=== PATIENT | female | born 1965 | race Caucasian/White ===

== ENCOUNTER → 2018-11-21 | Outpatient (CLI) | payer BC ==
[~2018-11-21] MED LIST: ALDACTONE25 MG PO; ASPIRIN EC81 M1 PO; ATORVASTATIN CA40 MG PO; AUGMENTIN 500-1 EACH PO; BRILINTA90 MG PO; BUPROPION XL150 MG PO; CELEXA40 MG PO; CRESTOR20 MG PO; ESTRACE2 MG; FENOFIBRATE134 MG PO; FIORICET 50-301 EACH PO; FISH OIL 1,0001 EAC5 PO; FISH OIL 1,001000 MG PO; GLUCOPHAGE1000 MG PO; GLUCOTROL5 MG PO; HUMALOG100 UNIT/2 SQ; HYDROCODON-ACE1 EAC2 PO; IRON325 PO; LEVEMIR SUBQ; LIPITOR80 MG; LISINOPRIL10 MG PO; LISINOPRIL20 MG PO; LOPRESSOR25 PO; LYRICA100 MG PO; MACROBID 100 M100 M1 PO; NEURONTIN800 MG PO; NIASPAN750 MG PO; NITROGLYCERIN0.4 MG SL; NORCO 5-325 TA1 EAC1 PO; PERCOCET 7.5-31 EACH PO; PRENATAL; PRENATAL MULTI1 EAC2 PO; SINUS NASAL SPR30 M1 NS; TEGRETOL200 MG PO; TOPROL XL25 MG PO; VICODIN ES 7.51 EACH PO; ZETIA10 MG PO; [UNRECOGNIZED DRUG - OTHER] PO
== END ==
LOC: M.WC 09:13
DX: E11.621 Type 2 diabetes mellitus with foot ulcer (principal); L97.522 Non-pressure chronic ulcer of other part of left foot with fat layer exposed; E11.42 Type 2 diabetes mellitus with diabetic polyneuropathy; E78.5 Hyperlipidemia, unspecified; I10 Essential (primary) hypertension; I25.10 Atherosclerotic heart disease of native coronary artery without angina pectoris; J44.9 Chronic obstructive pulmonary disease, unspecified; K21.9 Gastro-esophageal reflux disease without esophagitis; F17.200 Nicotine dependence, unspecified, uncomplicated; F32.9 Major depressive disorder, single episode, unspecified; Z90.710 Acquired absence of both cervix and uterus; Z96.653 Presence of artificial knee joint, bilateral

== ENCOUNTER → 2018-12-01 | Outpatient (CLI) | payer BC | LOC: M.WC 04:48 | DX: E11.621 Type 2 diabetes mellitus with foot ulcer (principal); L97.521 Non-pressure chronic ulcer of other part of left foot limited to breakdown of skin; E11.42 Type 2 diabetes mellitus with diabetic polyneuropathy; E78.5 Hyperlipidemia, unspecified; E66.9 Obesity, unspecified; I10 Essential (primary) hypertension; I25.10 Atherosclerotic heart disease of native coronary artery without angina pectoris; J44.9 Chronic obstructive pulmonary disease, unspecified; K21.9 Gastro-esophageal reflux disease without esophagitis; F32.9 Major depressive disorder, single episode, unspecified; F17.200 Nicotine dependence, unspecified, uncomplicated; Z68.32 Body mass index [BMI] 32.0-32.9, adult; Z96.653 Presence of artificial knee joint, bilateral ==

== ENCOUNTER → 2018-12-08 | Outpatient (CLI) | payer BC | LOC: M.WC 04:44 | DX: E11.621 Type 2 diabetes mellitus with foot ulcer (principal); L97.521 Non-pressure chronic ulcer of other part of left foot limited to breakdown of skin; E11.42 Type 2 diabetes mellitus with diabetic polyneuropathy; E78.5 Hyperlipidemia, unspecified; I10 Essential (primary) hypertension; I25.10 Atherosclerotic heart disease of native coronary artery without angina pectoris; J44.9 Chronic obstructive pulmonary disease, unspecified; K21.9 Gastro-esophageal reflux disease without esophagitis; E66.9 Obesity, unspecified; F32.9 Major depressive disorder, single episode, unspecified; F17.290 Nicotine dependence, other tobacco product, uncomplicated; Z68.32 Body mass index [BMI] 32.0-32.9, adult; Z96.653 Presence of artificial knee joint, bilateral ==

== ENCOUNTER → 2018-12-23 | Outpatient (CLI) | payer BC | LOC: M.WC 12-16 00:22 | DX: E11.621 Type 2 diabetes mellitus with foot ulcer (principal); L97.521 Non-pressure chronic ulcer of other part of left foot limited to breakdown of skin; E11.42 Type 2 diabetes mellitus with diabetic polyneuropathy; E66.9 Obesity, unspecified; E78.5 Hyperlipidemia, unspecified; I10 Essential (primary) hypertension; I25.10 Atherosclerotic heart disease of native coronary artery without angina pectoris; J44.9 Chronic obstructive pulmonary disease, unspecified; K21.9 Gastro-esophageal reflux disease without esophagitis; F32.9 Major depressive disorder, single episode, unspecified; F17.200 Nicotine dependence, unspecified, uncomplicated; Z96.653 Presence of artificial knee joint, bilateral ==

== ENCOUNTER → 2018-12-28 | Outpatient (CLI) | payer BC | LOC: M.ULTRA 12:54 | DX: I70.202 Unspecified atherosclerosis of native arteries of extremities, left leg (principal); Z91.013 Allergy to seafood; Z91.012 Allergy to eggs; Z88.8 Allergy status to other drugs, medicaments and biological substances; Z79.899 Other long term (current) drug therapy ==

== ENCOUNTER → 2018-12-30 | Outpatient (CLI) | payer BC | LOC: M.WC 05:42 | DX: E11.621 Type 2 diabetes mellitus with foot ulcer (principal); L97.521 Non-pressure chronic ulcer of other part of left foot limited to breakdown of skin; E11.42 Type 2 diabetes mellitus with diabetic polyneuropathy; E78.5 Hyperlipidemia, unspecified; I10 Essential (primary) hypertension; I87.2 Venous insufficiency (chronic) (peripheral); I25.10 Atherosclerotic heart disease of native coronary artery without angina pectoris; J44.9 Chronic obstructive pulmonary disease, unspecified; F17.290 Nicotine dependence, other tobacco product, uncomplicated; F32.9 Major depressive disorder, single episode, unspecified; Z96.653 Presence of artificial knee joint, bilateral ==

== ENCOUNTER → 2019-01-06 | Outpatient (CLI) | payer BC | LOC: M.WC 04:39 | DX: E11.621 Type 2 diabetes mellitus with foot ulcer (principal); L97.521 Non-pressure chronic ulcer of other part of left foot limited to breakdown of skin; E11.42 Type 2 diabetes mellitus with diabetic polyneuropathy; E78.5 Hyperlipidemia, unspecified; I10 Essential (primary) hypertension; I25.10 Atherosclerotic heart disease of native coronary artery without angina pectoris; J44.9 Chronic obstructive pulmonary disease, unspecified; K21.9 Gastro-esophageal reflux disease without esophagitis; F32.9 Major depressive disorder, single episode, unspecified; F17.290 Nicotine dependence, other tobacco product, uncomplicated; Z96.653 Presence of artificial knee joint, bilateral ==

== ENCOUNTER 2020-04-28 14:31 | Observation (INO) | payer BC ==
[~2020-04-28] VITALS: Ht 167.6 cm; Wt 104.3 kg
[~2020-04-28 14:31] MED LIST changes: -LEVEMIR SUBQ; +LEVEMIR100 UNIT/1 SUBQ
[2020-04-28 14:37] VITALS: BP 124/63
[2020-04-28 14:57] LABS: ABSOLUTE BASOPHILS 0.1 thou/uL (0.0-0.2); ABSOLUTE EOSINOPHILS 0.2 thou/uL (0.0-0.7); ABSOLUTE LYMPHOCYTES 3.2 thou/uL (0.8-5.3); ABSOLUTE MONOCYTES 0.6 thou/uL (0.0-1.2); ABSOLUTE NEUTROPHILS 6.1 thou/uL (1.6-8.1); BASOPHILS 1.3 %; HEMATOCRIT 41.3 % (37.0-47.0); HEMOGLOBIN 13.8 gm/dL (12.0-15.0); LYMPHOCYTES 30.9 %; MCH 28.9 pg (26.0-34.0); MCHC 33.5 g/dL (28.0-37.0); MCV 86.3 fL (80.0-100.0); MONOCYTES 6.2 %; MPV 10.5 fl. (7.2-11.1); NUCLEATED RBCS 0 /100WBC; PLATELET COUNT* 231 thou/uL (150-400); POLYS 59.6 %; RBC 4.79 mil/uL (4.20-5.00); RDW-CV 15.1 % (10.5-14.5); WBC 10.3 thou/uL (4.0-11.0)
[2020-04-28 15:08] LABS: APTT 29.6 Seconds (25.0-31.3); PROTIME 10.7 Seconds (9.20-11.50)
[2020-04-28 15:13] LABS: CALCIUM 8.3 mg/dL (8.5-10.1); CREATININE 1.9 mg/dL (0.6-1.3); POTASSIUM 3.6 mmol/L (3.5-5.1)
[2020-04-28 15:23] LABS: ALBUMIN 3.5 g/dL (3.4-5.0); MAGNESIUM 1.3 mg/dL (1.8-2.4); TOTAL BILIRUBIN 0.2 mg/dL (<0.1-1.0); TOTAL PROTEIN 7.6 g/dL (6.4-8.2)
[2020-04-28 19:35] VITALS: BP 123/61
[2020-04-28 20:00] VITALS: BP 128/70
[2020-04-29] VITALS: BP 147/57
[2020-04-29 04:00] VITALS: BP 111/75
[2020-04-29 04:49] LABS: HEMATOCRIT 38.3 % (37.0-47.0); HEMOGLOBIN 12.8 gm/dL (12.0-15.0); MCH 28.9 pg (26.0-34.0); MCHC 33.5 g/dL (28.0-37.0); MCV 86.4 fL (80.0-100.0); MPV 10.1 fl. (7.2-11.1); RBC 4.43 mil/uL (4.20-5.00); WBC 9.5 thou/uL (4.0-11.0)
[2020-04-29 05:00] LABS: CALCIUM 8.3 mg/dL (8.5-10.1); CREATININE 1.2 mg/dL (0.6-1.3); MAGNESIUM 1.3 mg/dL (1.8-2.4); POTASSIUM 4.1 mmol/L (3.5-5.1)
--- NOTE | 2020-04-29 05:42 | NUR ---
PATIENT ARRIVED ON UNIT AT APPROX 1930. 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 VITAL SIGNS REMAIN STABLE. REQUESTED PAIN MEDICATION FOR CONTINUED SHOULDER AND BACK PAIN. HOME NORCO RESUMED PER ORDER. IV PATENT. SINUS RHYTHM ON THE MONITOR. HOURLY ROUNDING COMPLETED CHARTED.
[2020-04-29 07:30] VITALS: BP 124/62
--- NOTE | 2020-04-29 09:55 | EKG ---
[place] [address] ELECTROCARDIOGRAM REPORT Name: THEODORE MANJARREZ Room: [address] M.R.#: [id number] Admission: 04/28/20 Attend Phys: Laurie Jorgensen, Discharge: Date of : 67 Date of Service: 04/28/20 1435 Report #: [id number] THIS REPORT FOR: //name// [facility] ED Test Date: 2020-04-28 Test Time: 14:35:31 Pat Name: THEODORE MANJARREZ Department: Room: [facility] Gender: F Architectural Practice Manager: NEDRA : 1965 Requested By: Raymundo Knott Order Number: [id number] MD: Ravin Posada Measurements Intervals [place] Rate: 87 P: 70 [place]: 169 QRS: 7 QRSD: 91 T: 100 QT: 370 QTc: 445 Interpretive Statements Sinus rhythm Borderline T wave abnormalities Compared to ECG 02/24/2016 11:01:34 Prolonged QT interval no longer present T-wave abnormality still present Electronically Signed On 04-29-2020 9:55:21 CDT by Ravin Posada [email or web address] <ELECTRONICALLY SIGNED> By: Ravin Posada MD, [facility] 04/29/20 0955 1435 1435 Ravin Posada MD, [facility] /EPI
[2020-04-29 12:37] VITALS: BP 123/64
--- NOTE | 2020-04-29 14:07 | NUR ---
CM SPOKE TO THE PT TO DISCUSS HER HOME SITUATION, DISCHARGE PLANNING, AND TO INFORM OF THE ROLE OF CM. PT A&O, INDEPENDENT, ACTIVE, AND WORKS. PT RESIDES AT HOME ALONE AND INFORMS THAT HER SPOUSE ' 1.5 YEARS AGO'. CM INFORMED ADMITTING OF THE NEED TO REMOVE THE PT'S SPOUSE FROM THE FACESHEET HE WAS LISTED THE PT'S EMERGENCY CONTACT. PT REQUEST THAT HER SON BE LISTED. PT PLANS TO RETURN HOME AT D/C AND DOES NOT ANTICIPATE ANY D/C PLANNING NEEDS. CM WILL REMAIN AVAILABLE TO ASSIST AND FOLLOW NEEDED.
--- NOTE | 2020-04-29 15:44 | EXE ---
[place] [address] STRESS ECHOCARDIOGRAM Name: THEODORE MANJARREZ Room: [address] MIbanRIban#: [id number] Admission: 04/28/20 Attend Phys: Laurie Jorgensen, Discharge: Date of : 67 Date of Service: 04/29/20 1544 Report #: [id number] THIS REPORT FOR: cc: Ildefonso Mulligan Russell J. DO Blick,Ravin Pichardo MD [facility] ~ APPROVED REPORT Study performed: 04/29/2020 14:09:40 Exam: Dobutamine Stress Echo Indication: Dizziness, Chest pain , CAD s/p PCI, Hyperlipidemia, Hypertension Patient Location: In-Patient Stress Nurse: Leatha Jain RN Supervising Physician: Ravin Posada MD Ht: 5 ft 5 in HR: 74 bpm BP: 137/73 mmHg Medical History Cardiac Risk Factors: FHX of CAD, Tobacco History (Current/Recent), Hyperlipidemia, HTN, Diabetes (insulin) Procedure The patient underwent a Pharmacological Stress Test using Dobutamine. Blood pressure, heart rate, and EKG were monitored. An Echocardiogram was performed by chemistry laboratory technician in four stages in quad fashion. At peak stress, four selected images were obtained and placed side by side with resting images for comparison. Echo Enhancing Agent Indication: Endocardial border delineation Agent(s) / Amount(s) Used: Optison cc Stress Test Details Stress Test: Pharmacological Stress Test using Dobutamine. Reason for pharmacologic stress test: physical limitation. HR Resting HR: 74 bpm Max Heart Rate (APMHR): 167 bpm Max HR Achieved: 148 bpm Target HR (85% APMHR): 141 bpm % of APMHR: 88 Recovery HR: 88 [place] [address] STRESS ECHOCARDIOGRAM Name: THEODORE MANJARREZ Room: [address] M.R.#: [id number] Admission: 04/28/20 Attend Phys: Laurie Jorgensen, Discharge: Date of : 67 Date of Service: 04/29/20 1544 Report #: [id number] HR response to stress: Normal HR response to stress BP Resting BP: 137/73 mmHg Max BP: 254/69 mmHg Recovery BP: 140/65 mmHg BP response to stress: Abnormal hypertensive response to stress. ECG Resting ECG: Sinus Rhythm Stress ECG: Sinus Rhythm, nonspecific ST-T abnormalities ST Change: Upsloping ST depression Maximum ST Deviation: 0.5 mm Arrhythmia: VPC's Recovery ECG: Sinus Rhythm Recovery ST Change: Normal Recovery ST Deviation: 0 mm Recovery Arrhythmia: None Clinical Reason for Termination: Completed protocol Exercise duration: 13 min 45 sec Exercise capacity: 1.00 METs Pre-Stress Echo The resting Echocardiogram showed normal left ventricular contractility with an estimated Ejection Fraction of about 55-60%. Post-Stress Echo The stress Echocardiogram showed normal left ventricular contractility with an estimated Ejection Fraction of about 65-70%. Compared to rest, there were no stress-induced wall motion abnormalities. Conclusion Clinical Response: Non-ischemic Stress ECG Response: Equivocal Stress Echo Images: Non-ischemic low risk stress dobutamine echo for predicitng future cardiac events Other Information Study Quality: Adequate Technically limited study [place] [address] STRESS ECHOCARDIOGRAM Name: JOSSELINETHEODORE JIMI Room: [address] MRonny#: [id number] Admission: 04/28/20 Attend Phys: Laurie Jorgensen, Discharge: Date of : 67 Date of Service: 04/29/20 154 Report #: [id number] <Conclusion> low risk stress dobutamine echo for predicitng future cardiac events <ELECTRONICALLY SIGNED> By: Ravin Posada MD, FACC 04/29/20 1544 1544 154 Ravin Posada MD, FACC /INF
[2020-04-29 16:38] VITALS: BP 123/64
--- NOTE | 2020-04-30 14:44 | CON ---
[address] [address] CONSULTATION Name: THEODORE MANJARREZ Room: [address] Suri Okeefe#: [id number] Admission: 04/28/20 Attend Phys: Laurie Jorgensen MD Discharge: 04/29/20 Date of : 67 Report #: [id number] THIS REPORT FOR: //name// cc: Ildefonso Mulligan Russell J. DO THIS REPORT FOR: //name// CC: Laurie Mulligan DO DATE OF SERVICE: 04/29/2020 CARDIOLOGY CONSULTATION HISTORY OF PRESENT ILLNESS: The patient is a 54-year-old single white female who I was asked to see in the hospital today after she complained of back pain. The patient apparently presented 4 years ago to [facility] with epigastric pain. She had 2 coronary stents placed. I have seen her in the Cardiology Clinic since that time. She was last seen last year. She stays very active at work. She denied any recent epigastric pain. Recently, she has been having a lot of back pain. She apparently had a recent CT scan of the back that showed spurs. She was at work yesterday when she felt a pain in her back, went into her shoulder. She felt diaphoretic, lightheaded and weak. She also noticed some epigastric discomfort. She drove herself to the Emergency Room and was admitted. She has had no further epigastric pain since that time. She denies exertional chest tightness, palpitations, syncope, peripheral edema, fever or cough. PAST MEDICAL HISTORY: Significant for cholecystectomy, hysterectomy, bilateral knee surgery, hypertension, diabetes, hyperlipidemia. CURRENT MEDICATIONS: Consist of aspirin, Lipitor, Wellbutrin, Tegretol, Celexa, Zetia, fenofibrate, glipizide, insulin, metformin, metoprolol, Lyrica. ALLERGIES: She has no known drug allergies. FAMILY HISTORY: Her brother had heart disease. 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 Smokes less than a pack of cigarettes a day. No alcohol abuse, no illicit drug use. REVIEW OF SYSTEMS: She is overweight, being 5 feet 6, 230 pounds. No history of stroke, snoring at night, asthma, liver disease. She has had kidney stones. No cancer. She saw a psychiatrist in the past. [place] [address] CONSULTATION Name: THEODORE MANJARREZ Room: [address] Maldonado#: [id number] Admission: 04/28/20 Attend Phys: Laurie Jorgensen MD Discharge: 04/29/20 Date of : 67 Report #: [id number] PHYSICAL EXAMINATION: GENERAL: Revealed a middle-aged female who appeared in no distress. VITAL SIGNS: She had a blood pressure of 110/70, pulse is 80, she is afebrile. HEENT: She was anicteric. Conjunctivae pink. Mucous membranes moist. NECK: Veins difficult to assess due to obesity. No carotid bruits. CHEST: Clear to auscultation. CARDIOVASCULAR: Regular rate and rhythm, no murmur. ABDOMEN: Obese. EXTREMITIES: Had no pitting edema. Dorsalis pedis pulse 1+ bilaterally. Straight leg raising produced no significant back pain. NEUROLOGIC: Nonfocal. Her ECG on admission showed a sinus rhythm, nonspecific T-wave changes. Compared to previous ECG in 2016. There was no significant change. Her workup in the Emergency Room yesterday, she had a portable chest x-ray that showed cardiomegaly, otherwise clear lung frances. CT scan of the chest using a PE protocol showed atelectasis, noncalcified nodules. LABORATORY WORK: Sodium 140, potassium 4.1, creatinine 1.2. Troponin 0.06. White blood cell count 9.5, hemoglobin 12.8. IMPRESSION AND RECOMMENDATIONS: 1. Back pain. Recent CT scan of the back. 2. Epigastric discomfort. Previous stent. Recommend dobutamine, Cardiolite. 3. Hypertension. The patient is on a beta-mariya. 4. Diabetes. 5. Obesity. 6. Dyslipidemia. The patient is on a statin drug for high cholesterol and fenofibrate for high triglycerides. 7. Tobacco abuse. <ELECTRONICALLY SIGNED> By: Ravin Posada MD, [facility] 04/30/20 1444 0815 [id number] Posada MD, [facility] /nt
== END 2020-04-29 16:53 | disposition home or self-care (01) ==
LOC: M.ERS 14:31 → M.2W 15:47 → M.TBA-ER 15:47 → M.2W 19:25
PROVIDERS: Emergency Medicine Emergency Medical Services; ADMIT Internal Medicine; ATTEND Internal Medicine
DX: Z03.818 Encounter for observation for suspected exposure to other biological agents ruled out (principal); R07.89 Other chest pain; M54.9 Dorsalgia, unspecified; J96.01 Acute respiratory failure with hypoxia; I25.10 Atherosclerotic heart disease of native coronary artery without angina pectoris; E11.9 Type 2 diabetes mellitus without complications; G57.93 Unspecified mononeuropathy of bilateral lower limbs; N17.9 Acute kidney failure, unspecified; F17.210 Nicotine dependence, cigarettes, uncomplicated; Z79.82 Long term (current) use of aspirin; Z79.899 Other long term (current) drug therapy; Z79.4 Long term (current) use of insulin

== ENCOUNTER 2021-05-24 11:30 | Inpatient (IN) | payer BC ==
[~2021-05-24] VITALS: Ht 167.6 cm; Wt 102.1 kg
[2021-05-24 11:34] VITALS: BP 103/46
[2021-05-24 11:59] LABS: ABSOLUTE BASOPHILS 0.2 thou/uL (0.0-0.2); ABSOLUTE EOSINOPHILS 0.8 thou/uL (0.0-0.7); ABSOLUTE LYMPHOCYTES 2.1 thou/uL (0.8-5.3); ABSOLUTE MONOCYTES 0.6 thou/uL (0.0-1.2); ABSOLUTE NEUTROPHILS 9.1 thou/uL (1.6-8.1); BASOPHILS 1.4 %; HEMATOCRIT 39.7 % (37.0-47.0); HEMOGLOBIN 12.6 gm/dL (12.0-15.0); LYMPHOCYTES 16.8 %; MCH 28.2 pg (26.0-34.0); MCHC 31.8 g/dL (28.0-37.0); MCV 88.7 fL (80.0-100.0); MONOCYTES 4.5 %; NUCLEATED RBCS 0 /100WBC; PLATELET COUNT* 216 thou/uL (150-400); POLYS 71.3 %; RBC 4.48 mil/uL (4.20-5.00); RDW-CV 14.8 % (10.5-14.5); WBC 12.7 thou/uL (4.0-11.0)
[2021-05-24 12:06] LABS: CALCIUM 8.1 mg/dL (8.5-10.1); CREATININE 3.2 mg/dL (0.6-1.3)
[2021-05-24 12:16] LABS: ALBUMIN 3.6 g/dL (3.4-5.0); MAGNESIUM 1.9 mg/dL (1.8-2.4); POTASSIUM 7.1 mmol/L (3.5-5.1); TOTAL BILIRUBIN 0.4 mg/dL (<0.1-1.0); TOTAL PROTEIN 7.5 g/dL (6.4-8.2)
--- NOTE | 2021-05-24 14:27 | EKG ---
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: : 1965 Requested By: Harris Harrell Order Number: [id number] MD: Steven Orozco Measurements Intervals [place] Rate: 92 P: 69 [place]: 165 QRS: -48 QRSD: 98 T: 84 QT: 394 QTc: 488 Interpretive Statements Sinus rhythm Left anterior fascicular block delayed R wave progression compared to ECG 04/28/2020 14:35:31 T-wave abnormality no longer present Electronically Signed On 05-24-2021 14:26:35 CDT by Steven Orozco [email or web address] <ELECTRONICALLY SIGNED> By: Steven Orozco MD, [facility] 05/24/21 1426 1134 1134 Steven Orozco MD, [facility] /EPI
[2021-05-24 17:20] VITALS: BP 116/56
[2021-05-24 17:51] LABS: CALCIUM 7.9 mg/dL (8.5-10.1); CREATININE 2.8 mg/dL (0.6-1.3)
[2021-05-24 17:52] LABS: POTASSIUM 6.7 mmol/L (3.5-5.1)
[2021-05-24 21:45] VITALS: BP 95/42
[2021-05-24 22:00] VITALS: BP 104/52
[2021-05-25 00:11] VITALS: BP 158/70
[2021-05-25 04:42] LABS: ABSOLUTE BASOPHILS 0.1 thou/uL (0.0-0.2); ABSOLUTE EOSINOPHILS 0.8 thou/uL (0.0-0.7); ABSOLUTE LYMPHOCYTES 2.9 thou/uL (0.8-5.3); ABSOLUTE MONOCYTES 0.7 thou/uL (0.0-1.2); ABSOLUTE NEUTROPHILS 4.1 thou/uL (1.6-8.1); BASOPHILS 0.9 %; EOSINOPHILS 9.6 %; HEMATOCRIT 35.4 % (37.0-47.0); HEMOGLOBIN 11.3 gm/dL (12.0-15.0); LYMPHOCYTES 33.3 %; MCH 28.4 pg (26.0-34.0); MCHC 31.9 g/dL (28.0-37.0); MCV 89.1 fL (80.0-100.0); MONOCYTES 8.1 %; MPV 9.9 fl. (7.2-11.1); NUCLEATED RBCS 0 /100WBC; PLATELET COUNT* 182 thou/uL (150-400); POLYS 48.1 %; RBC 3.98 mil/uL (4.20-5.00); RDW-CV 14.8 % (10.5-14.5); WBC 8.6 thou/uL (4.0-11.0)
[2021-05-25 04:49] VITALS: BP 108/40
[2021-05-25 05:00] LABS: CALCIUM 8.2 mg/dL (8.5-10.1); CREATININE 2.1 mg/dL (0.6-1.3)
[2021-05-25 05:06] LABS: POTASSIUM 6.6 mmol/L (3.5-5.1)
--- NOTE | 2021-05-25 06:26 | NUR ---
PT REMAIN ALERT AND ORIENT TIMES FOUR. DROWSY AT TIMES, STEADY WHEN TO BSC. VSS, AFEBRILE. SR PER MONITOR. C/O HAVING A HEAD ACHE, STATES THAT SHE HAS A HX OF MIGRAINE HEADACHE. DID GET A DOSE OF MS IN ED. FELT THAT IF SHE GOT SOME SLEEP HER SEVILLA WOULD RESIDE. PT IS NEGATIVE FOR COVIDVIOLETTA LEGAL TRANSCRIBER IS AWARE OF. PT HAS A CRITICAL k+ 6.6 UPON ADMISSION PT HAD A k+ OF 6.7 DR. ALEXANDRE WAS CONSULTED FOR A CALL BACK. SPOKE TO DANY (ANSWERING SERVICE) WHO STATE THAT SHE WOULD PAGE DR. ALEXANDRE WHO WAS [employer]IO[employer]S PRODUCT DEVELOPMENT MANAGER. STILL AWAITING A RETURN CALL FROM THE AT THE TIME OF THIS REPORT. SLOW PROGRESS TOWARDS DC GOALS. WILL CONTINUE TO MONITOR.
[2021-05-25 08:03] VITALS: BP 100/41
--- NOTE | 2021-05-25 14:05 | NUR ---
DOCTOR ANDRY WITH NEPHROLOGY NOTIFIED ABOUT CRITICAL POTASSIUM 6.4, DECREASED FROM 6.6. ORDERED A RECHECK IN 2 HOURS
[2021-05-25 14:06] VITALS: BP 109/43
--- NOTE | 2021-05-25 18:14 | NUR ---
DR. WILDE NOTIFIED POTASSIUM 6.3 ORDERED ONE MORE DOSE OF VELTASSA AND A RECHECK IN 2 HOURS. PT BEING TRANSFERED TO 211, REPORT GIVEN TO NURSE IRVIN.
[2021-05-25 20:19] VITALS: BP 162/55
[2021-05-25] MEDS ORDERED: SINGULAIR 10 MG10 MG PO (21:14)
[2021-05-26] VITALS: BP 118/53
[2021-05-26 01:27] LABS: ABSOLUTE BASOPHILS 0.1 thou/uL (0.0-0.2); ABSOLUTE EOSINOPHILS 0.4 thou/uL (0.0-0.7); ABSOLUTE LYMPHOCYTES 2.3 thou/uL (0.8-5.3); ABSOLUTE MONOCYTES 0.5 thou/uL (0.0-1.2); ABSOLUTE NEUTROPHILS 2.7 thou/uL (1.6-8.1); BASOPHILS 1.3 %; EOSINOPHILS 7.2 %; HEMATOCRIT 34.6 % (37.0-47.0); HEMOGLOBIN 11.2 gm/dL (12.0-15.0); LYMPHOCYTES 37.6 %; MCH 28.2 pg (26.0-34.0); MCHC 32.5 g/dL (28.0-37.0); MCV 86.9 fL (80.0-100.0); MONOCYTES 8.5 %; NUCLEATED RBCS 0 /100WBC; PLATELET COUNT* 172 thou/uL (150-400); POLYS 45.4 %; RBC 3.99 mil/uL (4.20-5.00)
[2021-05-26 01:47] LABS: ALBUMIN 3.3 g/dL (3.4-5.0); CALCIUM 9.2 mg/dL (8.5-10.1); CREATININE 1.3 mg/dL (0.6-1.3); POTASSIUM 5.6 mmol/L (3.5-5.1); TOTAL BILIRUBIN 0.2 mg/dL (<0.1-1.0); TOTAL PROTEIN 6.9 g/dL (6.4-8.2)
[2021-05-26 04:14] VITALS: BP 124/60
--- NOTE | 2021-05-26 07:46 | NUR ---
PT IS ABLE TO COMMUNICATE HER NEEDS TO STAFF EFFECTIVELY. CURRENT PAIN MEDICATION REGIMEN HAS BEEN ADEQUATE FOR CONTROLLING HER PAIN UP TO THIS TIME.
[2021-05-26 08:00] VITALS: BP 153/60
[2021-05-26 09:00] VITALS: BP 156/57
[2021-05-26 12:01] VITALS: BP 156/57
[2021-05-26] MEDS ORDERED: AUGMENTIN 875-1 EACH PO (12:13)
[2021-05-26 12:49] LABS: AMP/METHAMP Negative (Negative); BARBITURATES Negative (Negative); BENZODIAZEPINES Negative (Negative); COCAINE Negative (Negative); METHADONE Negative (Negative); OPIATES POSITIVE (Negative); PCP Negative (Negative); THC Negative (Negative)
[2021-05-26 15:21] LABS: CALCIUM 8.6 mg/dL (8.5-10.1); CREATININE 1.1 mg/dL (0.6-1.3); POTASSIUM 5.1 mmol/L (3.5-5.1)
--- NOTE | 2021-05-26 16:08 | NUR ---
ASSUMED PT CARE AT 0730. PT IS A&OX4 COOPERATIVE AND PLEASANT. PT REQUEST PAIN MEDICATION Q2HR. NON PHARM INTERVENTIONS OFFERED AND DECLINED. ASSESSMENT COMPLETED. MEDICATIONS ADMINISTERED ORDERED. PT TO HAVE K+ LEVEL CHECKED THIS AFTERNOON AND MAY DC TO HOME IF LEVEL IS WNL, PT AWARE.
[2021-05-26 16:29] VITALS: BP 156/57
== END 2021-05-26 17:28 | disposition home or self-care (01) | DRG 178 ==
LOC: M.ERS 11:30 → M.TBA-ER 13:17 → M.ORTHSURG 05-25 00:06 → M.2W 05-25 18:38
PROVIDERS: Family Medicine; ADMIT Internal Medicine; ATTEND Internal Medicine
DX: J69.0 Pneumonitis due to inhalation of food and vomit (principal); N17.9 Acute kidney failure, unspecified; E11.9 Type 2 diabetes mellitus without complications; E87.5 Hyperkalemia; E66.9 Obesity, unspecified; Z20.822 Contact with and (suspected) exposure to COVID-19; E11.40 Type 2 diabetes mellitus with diabetic neuropathy, unspecified; Z90.49 Acquired absence of other specified parts of digestive tract; Z95.5 Presence of coronary angioplasty implant and graft; Z91.012 Allergy to eggs; Z91.013 Allergy to seafood; Z68.36 Body mass index [BMI] 36.0-36.9, adult

== ENCOUNTER → 2021-08-22 | Outpatient (CLI) | payer BC ==
[~2021-08-22] MED LIST changes: +AUGMENTIN 875-1 EACH PO; +SINGULAIR 10 MG10 MG PO
== END ==
LOC: M.WC 09:00
PROVIDERS: ATTEND Family Medicine
DX: E11.621 Type 2 diabetes mellitus with foot ulcer (principal); L97.412 Non-pressure chronic ulcer of right heel and midfoot with fat layer exposed; L97.512 Non-pressure chronic ulcer of other part of right foot with fat layer exposed; L97.521 Non-pressure chronic ulcer of other part of left foot limited to breakdown of skin; L03.116 Cellulitis of left lower limb; I87.2 Venous insufficiency (chronic) (peripheral); E11.42 Type 2 diabetes mellitus with diabetic polyneuropathy; K58.9 Irritable bowel syndrome, unspecified; M51.36 Other intervertebral disc degeneration, lumbar region; E78.5 Hyperlipidemia, unspecified; E11.22 Type 2 diabetes mellitus with diabetic chronic kidney disease; I12.9 Hypertensive chronic kidney disease with stage 1 through stage 4 chronic kidney disease, or unspecified chronic kidney disease; N18.2 Chronic kidney disease, stage 2 (mild); D50.9 Iron deficiency anemia, unspecified; I25.10 Atherosclerotic heart disease of native coronary artery without angina pectoris; J44.9 Chronic obstructive pulmonary disease, unspecified; F32.9 Major depressive disorder, single episode, unspecified; F41.9 Anxiety disorder, unspecified; F17.290 Nicotine dependence, other tobacco product, uncomplicated; Z98.890 Other specified postprocedural states; Z79.01 Long term (current) use of anticoagulants; Z79.82 Long term (current) use of aspirin; Z79.4 Long term (current) use of insulin; Z79.899 Other long term (current) drug therapy; Z96.653 Presence of artificial knee joint, bilateral; Z90.710 Acquired absence of both cervix and uterus; Z90.49 Acquired absence of other specified parts of digestive tract

== ENCOUNTER 2021-08-25 17:05 | Inpatient (IN) | payer BC ==
[~2021-08-25] VITALS: Ht 152.4 cm; Wt 104.3 kg
[~2021-08-25 17:05] MED LIST changes: -ALPRAZOLAM ER1 MG PO; -BRINTELLIX20 MG PO; -EFFIENT10 MG PO; -NEXIUM 40 MG CA40 M1 PO; -SPIRONOLACTONE50 MG PO; -TRESIBA FL100 UNIT/1 SUBQ
[2021-08-25 17:12] VITALS: BP 125/74
[2021-08-25] MEDS ORDERED: ALPRAZOLAM ER1 MG PO (17:18)
[2021-08-25] MEDS ORDERED: LISINOPRIL10 MG PO (17:18)
[2021-08-25] MEDS ORDERED: TRESIBA FL100 UNIT/1 SUBQ (17:19)
[2021-08-25] MEDS ORDERED: EFFIENT10 MG PO (17:20)
[2021-08-25] MEDS ORDERED: SPIRONOLACTONE50 MG PO (17:20)
[2021-08-25] MEDS ORDERED: NEXIUM 40 MG CA40 M1 PO (17:21)
[2021-08-25] MEDS ORDERED: BRINTELLIX20 MG PO (17:21)
[2021-08-25 17:50] LABS: ABSOLUTE BASOPHILS 0.1 thou/uL (0.0-0.2); ABSOLUTE EOSINOPHILS 0.2 thou/uL (0.0-0.7); ABSOLUTE LYMPHOCYTES 2.9 thou/uL (0.8-5.3); ABSOLUTE MONOCYTES 0.6 thou/uL (0.0-1.2); ABSOLUTE NEUTROPHILS 8.5 thou/uL (1.6-8.1); EOSINOPHILS 1.8 %; HEMATOCRIT 39.5 % (37.0-47.0); HEMOGLOBIN 12.8 gm/dL (12.0-15.0); LYMPHOCYTES 23.6 %; MCH 27.1 pg (26.0-34.0); MCHC 32.5 g/dL (28.0-37.0); MCV 83.5 fL (80.0-100.0); MONOCYTES 4.7 %; MPV 8.9 fl. (7.2-11.1); NUCLEATED RBCS 0 /100WBC; PLATELET COUNT* 349 thou/uL (150-400); POLYS 68.9 %; RBC 4.73 mil/uL (4.20-5.00); RDW-CV 15.4 % (10.5-14.5); WBC 12.3 thou/uL (4.0-11.0)
[2021-08-25 17:59] LABS: CALCIUM 8.9 mg/dL (8.5-10.1); CREATININE 1.2 mg/dL (0.6-1.3); POTASSIUM 3.7 mmol/L (3.5-5.1)
[2021-08-25 18:04] LABS: ALBUMIN 3.3 g/dL (3.4-5.0); TOTAL BILIRUBIN 0.3 mg/dL (<0.1-1.0); TOTAL PROTEIN 7.8 g/dL (6.4-8.2)
[2021-08-25 21:18] VITALS: BP 121/70
[2021-08-25 21:56] VITALS: BP 123/60
[2021-08-26 05:58] LABS: HEMATOCRIT 41.9 % (37.0-47.0); HEMOGLOBIN 13.2 gm/dL (12.0-15.0); MCH 26.5 pg (26.0-34.0); MCHC 31.6 g/dL (28.0-37.0); MCV 83.8 fL (80.0-100.0); MPV 8.9 fl. (7.2-11.1); RDW-CV 15.3 % (10.5-14.5)
[2021-08-26 06:28] LABS: ALBUMIN 2.8 g/dL (3.4-5.0); CALCIUM 8.5 mg/dL (8.5-10.1); CREATININE 0.8 mg/dL (0.6-1.3); POTASSIUM 4.1 mmol/L (3.5-5.1); TOTAL BILIRUBIN 0.2 mg/dL (<0.1-1.0); TOTAL PROTEIN 6.8 g/dL (6.4-8.2)
[2021-08-26 08:00] VITALS: BP 129/77
[2021-08-26 15:56] VITALS: BP 159/68
[2021-08-27 09:00] VITALS: BP 149/67
[2021-08-27 12:31] LABS: ABSOLUTE BASOPHILS 0.1 thou/uL (0.0-0.2); ABSOLUTE EOSINOPHILS 0.1 thou/uL (0.0-0.7); ABSOLUTE LYMPHOCYTES 2.3 thou/uL (0.8-5.3); ABSOLUTE MONOCYTES 0.4 thou/uL (0.0-1.2); ABSOLUTE NEUTROPHILS 5.1 thou/uL (1.6-8.1); BASOPHILS 0.8 %; EOSINOPHILS 1.3 %; HEMATOCRIT 38.5 % (37.0-47.0); HEMOGLOBIN 12.3 gm/dL (12.0-15.0); LYMPHOCYTES 28.7 %; MCH 26.7 pg (26.0-34.0); MCV 83.6 fL (80.0-100.0); MONOCYTES 5.5 %; MPV 9.3 fl. (7.2-11.1); NUCLEATED RBCS 0 /100WBC; PLATELET COUNT* 329 thou/uL (150-400); POLYS 63.7 %; RDW-CV 15.5 % (10.5-14.5)
[2021-08-27 12:46] LABS: ALBUMIN 3.1 g/dL (3.4-5.0); CREATININE 0.9 mg/dL (0.6-1.3); POTASSIUM 4.7 mmol/L (3.5-5.1); TOTAL BILIRUBIN 0.3 mg/dL (<0.1-1.0); TOTAL PROTEIN 7.4 g/dL (6.4-8.2)
[2021-08-27 15:48] VITALS: BP 147/63
[2021-08-27 20:45] VITALS: BP 155/66
[2021-08-28 08:00] VITALS: BP 131/81; BP 143/60
[2021-08-28 15:51] VITALS: BP 113/57
--- NOTE | 2021-08-28 16:11 | EKG ---
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: BD : 1965 Requested By: Mahogany Rodriguez Order Number: [id number] Lorna MD: Ravin Posada Measurements Intervals [place] Rate: 54 P: 17 SD: 198 QRS: 1 QRSD: 91 T: 21 QT: 454 QTc: 431 Interpretive Statements Sinus bradycardia Compared to ECG 05/24/2021 11:34:43 Left anterior fascicular block no longer present rate has slowed Electronically Signed On 08-28-2021 16:11:06 DIRECTOR OF RESOURCE DEVELOPMENT by Ravin Posada [email or web address] <ELECTRONICALLY SIGNED> By: Ravin Posada MD, FAC 08/28/21 1611 1152 1152 Ravin Posada MD, [facility] /EPI
[2021-08-28 20:00] VITALS: BP 108/63
[2021-08-29 16:00] VITALS: BP 132/55
[2021-08-29 19:47] VITALS: BP 140/67
[2021-08-30 00:05] VITALS: BP 132/63
[2021-08-30 04:19] VITALS: BP 126/53
[2021-08-30 08:00] VITALS: BP 141/67
[2021-08-30 11:54] VITALS: BP 142/67
[2021-08-30] MEDS ORDERED: OXYCODONE HCL 55 MG PO (13:30)
[2021-08-30] MEDS ORDERED: DOXYCYCLINE 10100 M2 PO ×2 (13:30→13:39)
[2021-08-30 14:06] VITALS: BP 142/67
--- NOTE | 2021-09-02 08:08 | PATH ---
[address] [address] PATHOLOGY RPT PROCEDURE Name: SIS PEDRAZA Room: [address] IN M.R.#: [id number] Admission: 08/25/21 Date of : 67 Discharge: 08/30/21 Report #: [id number] Path Case #: [id number] [facility] Accession Number: [id number] . 01 Material submitted: . toe - RIGHT 5TH TOE FOOT. Modifiers: right, fifth, FOOT . 01 Clinical history: . CELLULITIS RIGHT FOOT, NONHEALING WOUND INCISION AND DRAINAGE AMPUTATION OF TOE . 02 Diagnosis: Right fifth toe: - Benign toe with extensive necrosis and acute inflammation and osteomyelitis of phalangeal bone with disarticulation margin (in separate bone segment) free of osteomyelitis. See comment. (JAREK:precious; 09/01/2021) QTP 09/01/2021 1325 Local . 02 Comment: Review of Dr. Rodriguez's operative report dated 08/29/2021 reveals the fifth toe to have been disarticulated at the metatarsal phalangeal joint. . (JAREK:[facility]; 09/01/2021) . 02 Electronically signed: . Michael Martin MD, Pathologist NPI- [id number] . 01 Gross description: . The specimen is received in formalin, labeled "Sis Pedraza, right fifth toe". Received is an amputated digit measuring 3.8 x 2.5 x 1.5 cm in greatest dimensions. The bone margin is jagged in appearance. The bone and soft tissue margins are inked black. The nail is present displaying a light brown and slightly thickened appearance. The epidermal surface is pink-red, sloughing to weinberg-brown, necrotic in appearance. A full-thickness longitudinal cross-section is submitted from proximal to distal aspects in cassettes A1 and A2, following decalcification. . Also received within the specimen container is an additional segment of bone measuring 2.8 x 1.5 x 1.2 cm in greatest dimensions. One margin is jagged in appearance and the opposite margin is smooth, convex in appearance, consistent with disarticulation. The disarticulated margin is inked black. A full-thickness longitudinal cross-section is submitted in cassette A3, following decalcification. (CAA; 08/29/2021) QAC/QAC 08/29/2021 [address] [place] [address] PATHOLOGY RPT PROCEDURE Name: SIS PEDRAZA Room: [address] DIS IN M.R.#: [id number] Admission: 08/25/21 Date of : 67 Discharge: 08/30/21 Report #: [id number] Path Case #: [id number] . 02 Pathologist provided ICD-10: M86.8X7, I96 . 02 CPT . 601008, 550385 Specimen Comment: A courtesy copy of this report has been sent to [phone] Specimen Comment: [phone] Specimen Comment: Report sent to / DR GARCIA Specimen Comment: A duplicate report has been generated due to demographic updates. Performed at: [address] [facility], [place], [place] [id number] MD Maurilio Shoemaker MD Phone: [phone] Performed at: 02 [facility] [address], [place], [place] [id number] MD Michael Martin MD Phone: [phone]
== END 2021-08-30 15:16 | disposition home or self-care (01) | DRG 574 ==
LOC: M.ERS 17:05 → M.3W 18:31 → M.TBA-ER 18:31 → M.3W 21:55
PROVIDERS: Family Medicine; Internal Medicine; ADMIT Internal Medicine; ATTEND Internal Medicine
PROC: 0Y6X0Z1 Detachment at Right 5th Toe, High, Open Approach (ICD-10-PCS; principal; 2021-08-29)
PROC: 0HRMXK3 Replacement of Right Foot Skin with Nonautologous Tissue Substitute, Full Thickness, External Approach (ICD-10-PCS; principal; 2021-08-29)
DX: L03.115 Cellulitis of right lower limb (principal); M86.8X7 Other osteomyelitis, ankle and foot; E11.69 Type 2 diabetes mellitus with other specified complication; E11.621 Type 2 diabetes mellitus with foot ulcer; E11.40 Type 2 diabetes mellitus with diabetic neuropathy, unspecified; F17.210 Nicotine dependence, cigarettes, uncomplicated; Z90.49 Acquired absence of other specified parts of digestive tract; Z20.822 Contact with and (suspected) exposure to COVID-19; Z90.710 Acquired absence of both cervix and uterus; Z95.5 Presence of coronary angioplasty implant and graft; Z91.012 Allergy to eggs; Z91.013 Allergy to seafood; Z82.49 Family history of ischemic heart disease and other diseases of the circulatory system; Z79.82 Long term (current) use of aspirin; Z79.899 Other long term (current) drug therapy

== ENCOUNTER → 2021-08-25 | Outpatient (CLI) | payer BC ==
[~2021-08-25] MED LIST changes: +ALPRAZOLAM ER1 MG PO; +BRINTELLIX20 MG PO; +EFFIENT10 MG PO; +NEXIUM 40 MG CA40 M1 PO; +SPIRONOLACTONE50 MG PO; +TRESIBA FL100 UNIT/1 SUBQ
== END ==
LOC: M.WC 12:49 → M.RAD 12:49 → M.WC 14:30
PROVIDERS: ATTEND Podiatrist Foot & Ankle Surgery
DX: E11.621 Type 2 diabetes mellitus with foot ulcer (principal); L97.412 Non-pressure chronic ulcer of right heel and midfoot with fat layer exposed; L97.512 Non-pressure chronic ulcer of other part of right foot with fat layer exposed; L97.522 Non-pressure chronic ulcer of other part of left foot with fat layer exposed; L03.116 Cellulitis of left lower limb; E11.42 Type 2 diabetes mellitus with diabetic polyneuropathy; E11.22 Type 2 diabetes mellitus with diabetic chronic kidney disease; I12.9 Hypertensive chronic kidney disease with stage 1 through stage 4 chronic kidney disease, or unspecified chronic kidney disease; N18.2 Chronic kidney disease, stage 2 (mild); E78.5 Hyperlipidemia, unspecified; E66.9 Obesity, unspecified; D50.9 Iron deficiency anemia, unspecified; I87.2 Venous insufficiency (chronic) (peripheral); I25.10 Atherosclerotic heart disease of native coronary artery without angina pectoris; J44.9 Chronic obstructive pulmonary disease, unspecified; K58.9 Irritable bowel syndrome, unspecified; K21.9 Gastro-esophageal reflux disease without esophagitis; M51.36 Other intervertebral disc degeneration, lumbar region; F32.9 Major depressive disorder, single episode, unspecified; F41.9 Anxiety disorder, unspecified; F17.290 Nicotine dependence, other tobacco product, uncomplicated; Z79.01 Long term (current) use of anticoagulants; Z79.82 Long term (current) use of aspirin; Z79.4 Long term (current) use of insulin; Z96.653 Presence of artificial knee joint, bilateral; Z90.710 Acquired absence of both cervix and uterus; Z90.49 Acquired absence of other specified parts of digestive tract

== ENCOUNTER 2021-09-03 21:25 | Inpatient (IN) | payer BC ==
[~2021-09-03] VITALS: Ht 167.6 cm; Wt 96.2 kg
[~2021-09-03 21:25] MED LIST changes: +ALPRAZOLAM ER1 MG PO; -ATORVASTATIN CA40 MG PO; +BRINTELLIX20 MG PO; +DOXYCYCLINE 10100 M2 PO; +EFFIENT10 MG PO; +LIPITOR80 MG PO; +NEXIUM 40 MG CA40 M1 PO; +OXYCODONE HCL 55 MG PO; +SPIRONOLACTONE50 MG PO; +TRESIBA FL100 UNIT/1 SUBQ
[2021-09-03 21:30] VITALS: BP 170/76
[2021-09-03 21:58] LABS: HEMATOCRIT 43.6 % (37.0-47.0); HEMOGLOBIN 13.8 gm/dL (12.0-15.0); MCH 26.6 pg (26.0-34.0); MCHC 31.6 g/dL (28.0-37.0); MCV 84.3 fL (80.0-100.0); MPV 9.4 fl. (7.2-11.1); NUCLEATED RBCS 0 /100WBC; PLATELET COUNT* 319 thou/uL (150-400); RBC 5.17 mil/uL (4.20-5.00); RDW-CV 15.5 % (10.5-14.5); WBC 11.3 thou/uL (4.0-11.0)
[2021-09-03 22:06] LABS: CALCIUM 8.9 mg/dL (8.5-10.1); CREATININE 1.1 mg/dL (0.6-1.3); POTASSIUM 4.4 mmol/L (3.5-5.1)
[2021-09-03 22:11] LABS: ALBUMIN 3.9 g/dL (3.4-5.0); TOTAL BILIRUBIN 0.5 mg/dL (<0.1-1.0); TOTAL PROTEIN 8.1 g/dL (6.4-8.2)
[2021-09-03 22:22] LABS: ABSOLUTE LYMPHOCYTES 1.5 thou/uL (0.8-5.3); ABSOLUTE MONOCYTES 0.6 thou/uL (0.0-1.2); ABSOLUTE NEUTROPHILS 9.3 thou/uL (1.6-8.1)
[2021-09-03 22:23] LABS: PLATELET ESTIMATE ADEQUATE
[2021-09-04] VITALS (7 sets, daily range): BP systolic 122–209; BP diastolic 50–92
[2021-09-04 00:05] LABS: URINE BILIRUBIN NEGATIVE (Negative); URINE BLOOD NEGATIVE (Negative); URINE CLARITY CLEAR; URINE COLOR YELLOW; URINE GLUCOSE-RANDOM NEGATIVE (Negative); URINE KETONES NEGATIVE (Negative); URINE LEUKOCYTES-REFLEX NEGATIVE (Negative); URINE NITRITE-REFLEX NEGATIVE (Negative); URINE PROTEIN 1+ (Negative); URINE SPECIFIC GRAVITY 1.015 (1.005-1.030); URINE UROBILINOGEN 0.2 E.U./dl (0.2-1.0)
--- NOTE | 2021-09-04 11:52 | EKG ---
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
[2021-09-04] MEDS ORDERED: PERCOCET 7.5-31 EAC1 PO (15:47)
[2021-09-04 16:47] LABS: BE -1.7 mmol/L (-2 to +3); PCO2 35.9 mmHg (35.0-45.0); PO2 118.5 mmHg (75.0-100.0); pH 7.413 (7.340-7.450)
[2021-09-04 19:21] LABS: ABSOLUTE BASOPHILS 0.1 thou/uL (0.0-0.2); ABSOLUTE LYMPHOCYTES 0.9 thou/uL (0.8-5.3); ABSOLUTE MONOCYTES 0.1 thou/uL (0.0-1.2); ABSOLUTE NEUTROPHILS 9.4 thou/uL (1.6-8.1); BASOPHILS 0.6 %; HEMATOCRIT 38.1 % (37.0-47.0); HEMOGLOBIN 12.4 gm/dL (12.0-15.0); LYMPHOCYTES 8.2 %; MCH 26.8 pg (26.0-34.0); MCHC 32.5 g/dL (28.0-37.0); MCV 82.5 fL (80.0-100.0); MONOCYTES 1.2 %; MPV 9.1 fl. (7.2-11.1); NUCLEATED RBCS 0 /100WBC; PLATELET COUNT* 272 thou/uL (150-400); RBC 4.62 mil/uL (4.20-5.00); WBC 10.5 thou/uL (4.0-11.0)
[2021-09-04 19:31] LABS: APTT 26.8 Seconds (25.0-31.3); INR 1.1; PROTIME 10.9 Seconds (9.20-11.50)
[2021-09-04 19:32] LABS: ALBUMIN 3.4 g/dL (3.4-5.0); CALCIUM 8.5 mg/dL (8.5-10.1); POTASSIUM 4.1 mmol/L (3.5-5.1); TOTAL BILIRUBIN 0.8 mg/dL (<0.1-1.0); TOTAL PROTEIN 7.3 g/dL (6.4-8.2)
[2021-09-05] VITALS (41 sets, daily range): BP systolic 107–162; BP diastolic 49–133
[2021-09-05 00:53] LABS: PCO2 40.3 mmHg (35.0-45.0)
[2021-09-05 00:55] LABS: PO2 142.1 mmHg (75.0-100.0)
[2021-09-05 06:12] LABS: ALBUMIN 3.5 g/dL (3.4-5.0); CALCIUM 8.8 mg/dL (8.5-10.1); POTASSIUM 3.6 mmol/L (3.5-5.1); TOTAL BILIRUBIN 0.9 mg/dL (<0.1-1.0); TOTAL PROTEIN 7.4 g/dL (6.4-8.2)
[2021-09-05 06:31] LABS: ABSOLUTE LYMPHOCYTES 1.5 thou/uL (0.8-5.3); ABSOLUTE MONOCYTES 0.4 thou/uL (0.0-1.2); ABSOLUTE NEUTROPHILS 7.1 thou/uL (1.6-8.1); BASOPHILS 0.5 %; HEMATOCRIT 39.8 % (37.0-47.0); HEMOGLOBIN 12.9 gm/dL (12.0-15.0); LYMPHOCYTES 16.2 %; MCH 26.9 pg (26.0-34.0); MCHC 32.4 g/dL (28.0-37.0); MONOCYTES 4.1 %; MPV 9.3 fl. (7.2-11.1); NUCLEATED RBCS 0 /100WBC; PLATELET COUNT* 297 thou/uL (150-400); POLYS 79.2 %; RDW-CV 15.7 % (10.5-14.5)
[2021-09-05 06:40] LABS: PHOSPHORUS* 5.6 mg/dL (2.5-4.9)
[2021-09-05 09:00] LABS: PCO2 37.2 mmHg (35.0-45.0); pH 7.442 (7.340-7.450)
[2021-09-05 09:05] LABS: PO2 183.3 mmHg (75.0-100.0)
--- NOTE | 2021-09-05 10:29 | 2DMMODE ---
[place] [address] 2 D/M-MODE ECHOCARDIOGRAM Name: JOSSELINETHEODORE DOUGLASN Room: [address] IN .R.#: [id number] Admission: 09/04/21 Attend Phys: Cas Maynard Discharge: Date of : 67 Date of Service: 09/05/21 1029 Report #: [id number] THIS REPORT FOR: cc: Mahogany Rodriguez DPM, Melissa M. DPM Holkins, John M. MD [facility] ~ APPROVED REPORT Study performed: 09/05/2021 09:47:27 EXAM: Comprehensive 2D, Doppler, and color-flow Echocardiogram Patient Location: In-Patient Room #: 005 Status: routine BSA: 2.08 HR: 49 bpm BP: 162/69 mmHg Rhythm: NSR Other Information Study Quality: Good Indications Dyspnea 2D Dimensions IVSd: 12.77 (7-11mm) LVOT Diam: 19.74 (18-24mm) LVDd: 54.71 mm PWd: 9.07 (7-11mm) Ascending Ao: 29.94 (22-36mm) LVDs: 30.45 (25-40mm) Aortic Root: 29.16 mm Volumes Left Atrial Volume (Systole) LA ESV Index: 25.70 mL/m2 Aortic Valve AoV Peak Villa.: 1.84 m/s AO Peak Gr.: 13.53 mmHg LVOT Max P.14 mmHg AO Mean Gr.: 6.67 mmHg LVOT Mean P.62 mmHg LVOT Max V: 1.02 m/s AO V2 VTI: 42.50 cm LVOT Mean V: 0.56 m/s GEMMA (VTI): 1.66 cm2 LVOT V1 VTI: 23.04 [place] [address] 2 D/M-MODE ECHOCARDIOGRAM Name: THEODORE MANJARREZ Room: [address] IN .R.#: [id number] Admission: 09/04/21 Attend Phys: Cas Maynard Discharge: Date of : 67 Date of Service: 09/05/21 1029 Report #: [id number] Mitral Valve E/A Ratio: 1.39 MV Decel. Time: 244.49 ms MV E Max Villa.: 0.88 m/s MV PHT: 70.90 ms MVA (PHT): 3.10 cm2 TDI E/Lateral E': 8.80 E/Medial E': 11.00 Medial E' Villa.: 0.08 m/s Lateral E' Villa.: 0.10 m/s Pulmonary Valve PV Peak Villa.: 1.26 m/s PV Peak Gr.: 6.34 mmHg Left Ventricle The left ventricle is normal size. There is normal LV segmental wall motion. There is normal left ventricular wall thickness. Left ventricular systolic function is normal. The left ventricular ejection fraction is within the normal range. LVEF is 55-60%. The left ventricular diastolic function is normal. Right Ventricle The right ventricle is normal size. The right ventricular systolic function is normal. Atria The left atrium size is normal. The right atrium size is normal. Aortic Valve Mild aortic valve sclerosis. No aortic regurgitation is present. No hemodynamically significant valvular aortic stenosis. Mitral Valve The mitral valve is normal in structure. Trace mitral regurgitation. No evidence of mitral valve stenosis. Tricuspid Valve The tricuspid valve is normal in structure. Unable to assess PA pressure. Trace tricuspid regurgitation. Pulmonic Valve The pulmonary valve is normal in structure. There is no pulmonic [place] [address] 2 D/M-MODE ECHOCARDIOGRAM Name: THEODORE MANJARREZ Room: [address] IN [facility]#: [id number] Admission: 09/04/21 Attend Phys: Cas Maynard Discharge: Date of : 67 Date of Service: 09/05/21 1029 Report #: [id number] Great Vessels The aortic root is normal in size. IVC is normal in size and collapses >50% with inspiration. Pericardium There is no pericardial effusion. <Conclusion> The left ventricle is normal size. There is normal left ventricular wall thickness. Left ventricular systolic function is normal. The left ventricular ejection fraction is within the normal range. LVEF is 55-60%. The left ventricular diastolic function is normal. The right ventricle is normal size. The left atrium size is normal. Mild aortic valve sclerosis. No aortic regurgitation is present. No hemodynamically significant valvular aortic stenosis. The mitral valve is normal in structure. Trace mitral regurgitation. The tricuspid valve is normal in structure. IVC is normal in size and collapses >50% with inspiration. There is no pericardial effusion. There is normal LV segmental wall motion. <ELECTRONICALLY SIGNED> By: Nagi Hernandez MD, [facility] 09/05/21 1029 1029 1029 Nagi Hernandez MD, [facility] /INF
--- NOTE | 2021-09-05 12:11 | CON ---
[address] [address] CONSULTATION Name: THEODORE MANJARREZ Room: [address] IN M.R.#: [id number] Admission: 09/04/21 Attend Phys: Aniyah Sahu Discharge: Date of : 67 Report #: [id number] THIS REPORT FOR: cc: Mahogany Rodriguez DPM, Melissa M. DPM Pervez, Adeel MD ~ DATE OF CONSULTATION: 09/04/2021 CONSULT REQUESTED BY: aCs Maynard MD. INDICATION FOR CONSULTATION: Acute hypoxemic respiratory failure. HISTORY OF PRESENT ILLNESS: This is a 55-year-old female with past medical history is as mentioned below. This does include a history of diabetes as well as coronary artery disease. The patient does take insulin at home. The patient is reported to be a former smoker. Information regarding COVID-19 vaccination is not available at this time. At this time, the patient was initially admitted yesterday. Presentation was with nausea, vomiting and dizziness. The patient has had surgery of the right foot earlier this week. The patient has also been confused and confusion is new for her. She was prescribed narcotics for pain control for foot surgery. The patient's family had reported that she may have had excessive use or abuse of the narcotic pills that were prescribed to her. Upon arrival to the Emergency Room yesterday, the patient was not on supplemental oxygen. In fact, she was not on supplemental oxygen until the afternoon today. The patient did receive vancomycin as well as Zosyn. She also was fluid resuscitated. This afternoon, the patient was suspected to have had a seizure. The patient had also vomited at that time. There is a concern that she may have aspirated. The patient since then has been on a nonrebreather mask. She did receive 2 mg of Ativan as well as 4 mg of morphine at that time and then subsequently also was placed on a Precedex drip. At the time of my evaluation, the patient was saturating around 96%, but was on a 100% nonrebreather mask. She was confused. She was also markedly drowsy and appeared to be agitated. She did not appear to be cooperative, but she had received sedation recently as above. The patient was not able to provide a further history or review of systems. PAST MEDICAL HISTORY: Coronary artery disease, previous echocardiogram and stress test from several years ago show a normal left ventricular ejection fraction without elevation in right heart pressures, diabetes, on insulin at home, back pain, neuropathy, hernia repair, appendectomy, tonsillectomy, multiple knee surgeries, cardiac stents in 2012 and in 2019, status post hysterectomy, recent surgery, [place] [address] CONSULTATION Name: THEODORE MANJARREZ Room: [address] IN .R.#: [id number] Admission: 09/04/21 Attend Phys: Aniyah Sahu Discharge: Date of : 67 Report #: [id number] SOCIAL HISTORY: There is an extensive history of smoking, unknown whether the patient has discontinued. I do not have further information. No known history of heavy alcohol use or illegal drug use. CURRENT MEDICATIONS: List in [facility] reviewed. HOME MEDICATIONS: List in [facility] reviewed. ALLERGIES: SHELLFISH AND EGG. The patient did receive IV dye yesterday, which she had a CTA head and neck, there is no reaction noted. FAMILY HISTORY: There is no pertinent family history. PHYSICAL EXAMINATION: GENERAL: She is drowsy, arousable, did not answer orientation questions. VITAL SIGNS: Pulse of 67 and a blood pressure of 171/58, was breathing around 20-24, was saturating 96% on nonrebreather mask, afebrile with a temperature of 36.6. HEENT: Head is normocephalic and atraumatic. Throat appears to show a narrow airway. Throat examination and pupil examination is limited due to limited patient cooperation. NECK: Does not show raised JVP. CHEST: Breath sounds are bilaterally equal. No added sounds. HEART: Regular. No murmur. ABDOMEN: Soft and nontender. EXTREMITIES: Lower extremities, no edema on the left side. There is 1+ edema on the right side. There is a surgical bandage in place on the right side. NEUROLOGIC: Moves all extremities. No focal deficit identified. LABORATORY DATA: In [facility] reviewed. I repeated labs now and I reviewed these as well. I obtained a chest x-ray, which does show increase in pulmonary vascular congestion, interstitial infiltrates can also give this picture. ASSESSMENT AND PLAN: 1. Acute hypoxemic respiratory failure. The patient's D-dimer is only mildly elevated, which will make it unlikely that we are dealing with significant thromboembolism. The patient did have an episode where she vomited and likely aspirated. Also, she has been fluid resuscitated since yesterday and I suspect that at this point, she is fluid overloaded. I agree with giving her Precedex and we will continue. She has been taking narcotics at home. Therefore, we will continue to give her some narcotics as well. At this point, IV as she is unable to take p.o. in order to avoid withdrawals. Considering her altered mental status, I recommend trying to avoid giving her benzodiazepines. If she [place] [address] CONSULTATION Name: THEODORE MANJARREZ Room: [address] ADM IN M.R.#: [id number] Admission: 09/04/21 Attend Phys: Aniyah Sahu Discharge: Date of : 67 Report #: [id number] has seizures, then she will still need benzodiazepines, otherwise we will attempt to avoid. We will watch response to Precedex closely. If the patient fails to have a favorable response, then we will consider endotracheal intubation for airway protection and provision of care. 2. Acute confusional state/altered mental status/Possible Seizure. Etiology is not fully defined at this time. Neurology service has been consulted. 3. Fluid overload. I would go ahead and give her a dose of Lasix and follow response. 4. Cellulitis, lower extremities. She is broadly covered with vancomycin and Zosyn and I agree with the plan. 5. Aspiration. She is on antibiotic coverage as above. 6. Smoker/possible chronic obstructive pulmonary disease, order DuoNeb. She received 1 dose of Solu-Medrol. We will follow and we will consider giving her more steroids. 7. Recent foot surgery. I would also like to do lower extremity venous Dopplers. 8. History of coronary artery disease. Recommend also obtaining a 2D echocardiogram. 9. Hypomagnesemia, would replace. 10. Deep venous thrombosis prophylaxis, Lovenox. 11. Gastrointestinal prophylaxis. If she is able to take p.o., then we will start Protonix. Otherwise, we will consider Pepcid as Protonix IV is in short supply. The patient is critically ill at this time. Total time spent providing critical care to this patient today exceeds 45 minutes. <ELECTRONICALLY SIGNED> By: Rodrigo Brunner MD 09/05/21 1211 2038 [id number] Brunner MD /nt
[2021-09-06] VITALS (41 sets, daily range): BP systolic 99–167; BP diastolic 47–86
[2021-09-06 02:59] LABS: ABSOLUTE LYMPHOCYTES 1.4 thou/uL (0.8-5.3); ABSOLUTE MONOCYTES 0.4 thou/uL (0.0-1.2); ABSOLUTE NEUTROPHILS 8.3 thou/uL (1.6-8.1); BASOPHILS 0.2 %; HEMATOCRIT 37.6 % (37.0-47.0); HEMOGLOBIN 12.1 gm/dL (12.0-15.0); MCH 26.8 pg (26.0-34.0); MCHC 32.2 g/dL (28.0-37.0); MCV 83.1 fL (80.0-100.0); MONOCYTES 3.8 %; MPV 9.6 fl. (7.2-11.1); NUCLEATED RBCS 0 /100WBC; PLATELET COUNT* 280 thou/uL (150-400); RBC 4.52 mil/uL (4.20-5.00); RDW-CV 15.8 % (10.5-14.5); WBC 10.1 thou/uL (4.0-11.0)
[2021-09-06 03:20] LABS: ALBUMIN 3.2 g/dL (3.4-5.0); CALCIUM 8.3 mg/dL (8.5-10.1); CREATININE 1.1 mg/dL (0.6-1.3); MAGNESIUM 1.8 mg/dL (1.8-2.4); POTASSIUM 3.1 mmol/L (3.5-5.1); TOTAL BILIRUBIN 0.6 mg/dL (<0.1-1.0); TOTAL PROTEIN 6.9 g/dL (6.4-8.2)
[2021-09-06 15:26] LABS: BE 1.2 mmol/L (-2 to +3); PCO2 36.7 mmHg (35.0-45.0); PO2 85.3 mmHg (75.0-100.0)
[2021-09-07 04:00] VITALS: BP 137/52
[2021-09-07 08:00] VITALS: BP 137/45
[2021-09-07 12:00] VITALS: BP 161/74
[2021-09-07 16:00] VITALS: BP 148/70
[2021-09-07 20:00] VITALS: BP 167/72
[2021-09-08] VITALS: BP 152/64
[2021-09-08 04:00] VITALS: BP 146/50
[2021-09-08 08:00] VITALS: BP 165/69
[2021-09-08 12:00] VITALS: BP 155/75
[2021-09-08] MEDS ORDERED: SPIRONOLACTONE50 MG PO (13:27)
[2021-09-08 13:50] VITALS: BP 165/69
[2021-09-09 02:06] LABS: MYCOPLASMA PNEUMONIA IgG 707 U/mL (0-99)
[2021-09-09 23:06] LABS: MYCOPLASMA PNEUMONIA IgM <770 U/mL (0-769)
== END 2021-09-08 14:10 | disposition home or self-care (01) | DRG 208 ==
LOC: M.ERS 21:25 → M.TBA-ER 23:46 → M.ERS 23:46 → M.ICU 09-04 16:03 → M.TBA-ER 09-04 16:03 → M.ICU 09-04 22:58 → M.ORTHSURG 09-06 20:35
PROVIDERS: Emergency Medicine; Internal Medicine Critical Care Medicine; Pediatrics; ADMIT Internal Medicine; ATTEND Internal Medicine
PROC: 0BH17EZ Insertion of Endotracheal Airway into Trachea, Via Natural or Artificial Opening (ICD-10-PCS; principal; 2021-09-04)
PROC: 5A1945Z Respiratory Ventilation, 24-96 Consecutive Hours (ICD-10-PCS; principal; 2021-09-04)
DX: J96.01 Acute respiratory failure with hypoxia (principal); G93.41 Metabolic encephalopathy; L03.115 Cellulitis of right lower limb; E11.40 Type 2 diabetes mellitus with diabetic neuropathy, unspecified; F44.9 Dissociative and conversion disorder, unspecified; F32.9 Major depressive disorder, single episode, unspecified; E87.70 Fluid overload, unspecified; E83.42 Hypomagnesemia; Z87.891 Personal history of nicotine dependence; Z20.822 Contact with and (suspected) exposure to COVID-19; Z91.013 Allergy to seafood; Z90.49 Acquired absence of other specified parts of digestive tract; Z90.710 Acquired absence of both cervix and uterus; Z91.012 Allergy to eggs; I25.2 Old myocardial infarction